=== PATIENT | male | born 1995 | race Caucasian/White ===

== ENCOUNTER 2017-06-09 17:57 | Emergency (ER) | payer BC ==
[2017-06-09 18:10] VITALS: O2SAT 98
--- NOTE | 2017-06-09 18:53 | C.PDOC ---
History Of Present Illness 21 yr old male with history of chronic back pain, presents to the ER with worsening back pain for the past few days. 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 Patient states the pain is mainly left upper sided and made worse with rotation to left side. Patient denies chest pain, SOB, dysuria, incontinence, weakness or numbness. Time Seen by Provider: 06/09/17 18:18 Chief Complaint (Nursing): Back Pain History Per: Patient History/Exam Limitations: no limitations Onset/Duration Of Symptoms: Days (Few ) Past Medical History Reviewed: Historical Data, Nursing Documentation, Vital Signs Vital Signs: Last Vital Signs Temp 98 F 06/09/17 19:59 Pulse 82 06/09/17 19:59 Resp 20 06/09/17 19:59 BP 132/76 06/09/17 19:59 Pulse Ox 98 06/09/17 19:59 - Medical History PMH: Back Problems (Sciatica) - [facility] Procedures CL REDUC DISLOC-SHOULDER (07/14/14) CLOSURE SKIN & SUBCUTANEOUS NEC (01/26/15) TETANUS TOXOID ADMINIST (01/26/15) Family History: States: No Known Family Hx - Social History Hx Tobacco Use: No Hx Alcohol Use: Yes Hx Substance Use: No - Immunization History Hx Tetanus Toxoid Vaccination: No Hx Influenza Vaccination: No Hx Pneumococcal Vaccination: No Review Of Systems Except As Marked, All Systems Reviewed And Found Negative. Cardiovascular: Negative for: Chest Pain Respiratory: Negative for: Shortness of Breath Genitourinary: Negative for: Dysuria, Incontinence Musculoskeletal: Positive for: Back Pain (Left upper back pain ) Neurological: Negative for: Weakness, Numbness Physical Exam - Physical Exam Appears: Non-toxic, No Acute Distress Skin: Warm, Dry, No Rash Head: Atraumatic, Normacephalic Eye(s): bilateral: Normal Inspection, PERRL, EOMI Oral Mucosa: Moist Neck: Normal ROM, No Midline Cervical Tenderness, No Paracervical Tenderness, Supple Chest: Symmetrical, No Tenderness Cardiovascular: Rhythm Regular, No Friction Rub, No Murmur Respiratory: Normal Breath Sounds, No Rales, No Rhonchi, No Stridor, No Wheezing Gastrointestinal/Abdominal: Normal Exam, Soft, No Tenderness Back: No CVA Tenderness, No Vertebral Tenderness, Other ((+) Tenderness to the left para-thoracic. ) Extremity: Normal ROM, No Swelling Neurological/Psych: Oriented x3, Normal Speech, Normal Motor Gait: Steady ED Course And Treatment O2 Sat by Pulse Oximetry: 98 (RA) Pulse Ox Interpretation: Normal Progress Note: Patient was offered Prednisone and toradol but refused. Medical Decision Making Medical Decision Making: xray were negative and patient refused pain medications. Pain is most likely muscular in nature and results were given to the patient. On re-exam, the patient iis ambulatory in the ED with steady gait. Disposition - Disposition Referrals: at [facility] [Outside] Disposition: HOME/ ROUTINE Disposition Time: 19:43 Condition: GOOD Additional Instructions: Follow up with the medical doctor within 1-2 days. Return if worsened. 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 - Scribe Statement The provider has reviewed the documentation as recorded by the Scribe Daya Oropeza All medical record entries made by the Scribe were at my direction and personally dictated by me. I have reviewed the chart and agree that the record accurately reflects my personal performance of the history, physical exam, medical decision making, and the department course for this patient. I have also personally directed, reviewed, and agree with the discharge instructions and disposition.
[2017-06-09 20:01] VITALS: BP 132/76; PULSE 82; RESP 20; TEMP 98
--- NOTE | 2017-06-10 08:05 | RAD ---
HISTORY: left sided back pain COMPARISON: 08/24/2015 FINDINGS: BONES: Minimal scoliosis. No fracture. DISC SPACES: Normal. SOFT TISSUES: Normal. OTHER FINDINGS: None. IMPRESSION: Minimal scoliosis -unchanged
== END 2017-06-09 19:59 | disposition home or self-care (01) ==
LOC: C.ER 17:57
DX: M54.6 Pain in thoracic spine (principal)

== ENCOUNTER 2017-11-16 21:11 | Emergency (ER) | payer BC ==
[2017-11-16 22:18] VITALS: BP 147/81; PULSE 88; RESP 16; O2SAT 99
[2017-11-16 22:21] VITALS: TEMP 97.3
--- NOTE | 2017-11-16 23:02 | C.PDOC ---
History Of Present Illness 22 year old male presents to the ER with a complaint of left wrist pain for the past 2 weeks. Patient describes the pain as an aching throbbing pain that worsens with strenuous use of the left hand. Patient notes he is left hand dominant and admits he does a lot of heavy lifting and repetitive movements at work. He took tylenol at home with mild relief of the pain. Denies weakness, numbness, or traumatic injury. Time Seen by Provider: 11/16/17 22:27 Chief Complaint (Nursing): Upper Extremity Problem/Injury History Per: Patient History/Exam Limitations: no limitations Onset/Duration Of Symptoms: Days Current Symptoms Are (Timing): Still Present Quality: Aching, Other (Throbbing) Exacerbating Factor(s): Strenuous Use Of Affected Area Recent travel outside of the [place]: No Past Medical History Reviewed: Historical Data, Nursing Documentation, Vital Signs Vital Signs: Last Vital Signs Temp 97.3 F L 11/16/17 22:21 Pulse 88 11/16/17 22:15 Resp 16 11/16/17 22:15 BP 147/81 11/16/17 22:15 Pulse Ox 99 11/16/17 23:18 - Medical History PMH: Back Problems (Sciatica) - [facility] Procedures CL REDUC DISLOC-SHOULDER (07/14/14) CLOSURE SKIN & SUBCUTANEOUS NEC (01/26/15) TETANUS TOXOID ADMINIST (01/26/15) Family History: States: Unknown Family Hx - Social History Hx Tobacco Use: No Hx Alcohol Use: No Hx Substance Use: No - Immunization History Hx Tetanus Toxoid Vaccination: No Hx Influenza Vaccination: No Hx Pneumococcal Vaccination: No Review Of Systems Musculoskeletal: Positive for: Hand Pain Neurological: Negative for: Weakness, Numbness Physical Exam - Physical Exam Appears: Non-toxic, No Acute Distress Skin: Normal Color, Warm, Dry Head: Atraumatic, Normacephalic Eye(s): bilateral: Normal Inspection, EOMI Neck: Normal ROM Extremity: No Tenderness (Bony), Capillary Refill (<2 seconds), No Deformity, No Swelling, Other (Pain w/ flexion and pronation of the left wrist.) Pulses: Left Radial: Normal, Right Radial: Normal Neurological/Psych: Oriented x3, Normal Speech, Normal Motor, Normal Sensation ED Course And Treatment O2 Sat by Pulse Oximetry: 99 (room air) Pulse Ox Interpretation: Normal Medical Decision Making Medical Decision Making: Impression: wrist pain likely tendonitis. no trauma or bony tenderness, xray not indicated Plan: * Motrin * Velcro volar splint Patient reports improvement of pain, will discharge home with Rx and instructions to follow up with PMD. Disposition Counseled Patient/Family Regarding: Diagnosis, Need For Followup, Rx Given - Disposition Referrals: All Camargo MD [Staff Provider] - Disposition: HOME/ ROUTINE Disposition Time: 23:01 Condition: GOOD Additional Instructions: Please apply ice to area 15 minutes three times a day. Take Motrin as needed for pain every 6 hours, with food to not upset stomach. Follow up with orthopedic if pain persists over one week. 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 - Scribe Statement The provider has reviewed the documentation as recorded by the Scribe Nikos Jones All medical record entries made by the Stephanieibarnold were at my direction and personally dictated by me. I have reviewed the chart and agree that the record accurately reflects my personal performance of the history, physical exam, medical decision making, and the department course for this patient. I have also personally directed, reviewed, and agree with the discharge instructions and disposition.
== END 2017-11-16 23:21 | disposition home or self-care (01) ==
LOC: C.ER 21:11
DX: M77.8 Other enthesopathies, not elsewhere classified (principal)